=== PATIENT | female | born 1950 | race Caucasian/White ===

== ENCOUNTER 2021-09-24 15:54 | Emergency (ER) | payer MEDICARE, OTHER ==
[~2021-09-24] VITALS: Ht 177.8 cm; Wt 82.7 kg
[~2021-09-24 15:54] MED LIST: MULTIVITAMIN1 TA1 PO
[2021-09-24 16:17] VITALS: TEMP 97.8
[2021-09-24] MEDS ORDERED: NORCO 325 MG-51 TAB PO (18:14)
[2021-09-24 19:05] VITALS: BP 130/81; PULSE 80
== END 2021-09-24 19:10 | disposition home or self-care (01) ==
LOC: COL.ER 15:54
DX: S82.102A Unspecified fracture of upper end of left tibia, initial encounter for closed fracture (principal); W11.XXXA Fall on and from ladder, initial encounter; Y93.89 Activity, other specified
CPT/HCPCS: L1846